=== PATIENT | female | born 1950 | race Caucasian/White ===

== ENCOUNTER 2018-06-05 10:26 | Emergency (ER) | payer MEDICARE, OTHER ==
[2018-06-05] MEDS ORDERED: Sodium Chloride 0.9% 10 ML Syringe FLUSH PRN (10:44)
--- NOTE | 2018-06-05 11:02 | EDM.PDOC ---
ED HPI GENERAL MEDICAL PROBLEM - General Time Seen by Provider: 06/05/18 10:40 Source of Information: Reports: Patient, Family History Limitations: Reports: No Limitations - History of Present Illness INITIAL COMMENTS - FREE TEXT/NARRATIVE: Pt. presents to ER with tachycardia and shortness of breath. Her heartrate was 180 at home. She states that she has had issues with unknown type tachycardia in the past, but it has never been officially diagnosed-it has never been seen on EKG, Holter, etc. Pt. states that she has been experiencing intermittent palpitations for a number of years, but the episodes have been more frequent with several episodes over the holidays. She states that she does not usually get dyspneic, but states that she is today. Although her heart rate has decreased, she continues to have a heart rate of greater than 110 this AM. She denies any chest pain. No increased peripheral edema. No nausea or vomiting. She had a negative stress echo in 2014. Pt. denies any recent illness, fever, chills, cough, sore throat, nausea, or other prodrome. Onset: Today Onset Date: 06/05/18 Duration: Constant Location: Reports: Chest, Generalized Associated Symptoms: Reports: Shortness of Breath. Denies: Chest Pain - Related Data Allergies Allergy/AdvReac Type Severity Reaction Status Date / Time No Known Allergies Allergy Verified 06/05/18 10:44 Home Meds: Home Meds Aspirin 81 mg PO DAILY 06/05/18 [History] Cholecalciferol (Vitamin D3) [Vitamin D3] 1,000 unit PO DAILY 06/05/18 [History] Hydroquinone [[place]] 1 gm TP ASDIRECTED 06/05/18 [History] Lysine 500 mg PO DAILY 06/05/18 [History] Pravastatin [Pravachol] 10 mg PO DAILY 06/05/18 [History] ED ROS GENERAL - Review of Systems Review Of Systems: See Below Constitutional: Reports: No Symptoms. Denies: Fever, Chills, Malaise, Weakness , Fatigue, Night Sweats, Diaphoresis, Weight Loss HEENT: Reports: No Symptoms Respiratory: Reports: Shortness of Breath. Denies: Cough Cardiovascular: Reports: Dyspnea on Exertion, Lightheadedness, Palpitations Endocrine: Reports: No Symptoms GI/Abdominal: Reports: No Symptoms. Denies: Abdominal Pain, Bloody Stool, Diarrhea, Nausea, Vomiting : Reports: No Symptoms. Denies: Dysuria, Flank Pain Musculoskeletal: Reports: No Symptoms Skin: Reports: No Symptoms. Denies: Cyanosis Neurological: Reports: No Symptoms Psychiatric: Reports: No Symptoms Hematologic/Lymphatic: Reports: No Symptoms Immunologic: Reports: No Symptoms ED EXAM, GENERAL - Physical Exam Exam: See Below Exam Limited By: No Limitations General Appearance: Alert, WD/WN, No Apparent Distress Eye Exam: Bilateral Eye: EOMI, PERRL Throat/Mouth: Normal Inspection, Normal Lips, Normal Teeth, Normal Gums, Normal Oropharynx, Normal Voice, No Airway Compromise Head: Atraumatic, Normocephalic Neck: Normal Inspection, Supple, Non-Tender, Full Range of Motion Respiratory/Chest: No Respiratory Distress, Lungs Clear, Normal Breath Sounds, No Accessory Muscle Use, Chest Non-Tender Cardiovascular: Normal Peripheral Pulses, Regular Rate, Rhythm, No Edema, No Gallop, No JVD, No Murmur, No Rub Peripheral Pulses: 4+: Radial (R) GI/Abdominal: Normal Bowel Sounds, Soft, Non-Tender, No Organomegaly, No Distention, No Mass (Female) Exam: Deferred Rectal (Female) Exam: Deferred Back Exam: Normal Inspection, Full Range of Motion Extremities: Normal Inspection, Normal Range of Motion, Non-Tender, No Pedal Edema, Normal Capillary Refill. No: Pedal Edema, Joint Swelling Neurological: Alert, Oriented, CN II-XII Intact, Normal Cognition, Normal Reflexes, No Motor/Sensory Deficits Psychiatric: Normal Affect, Normal Mood, Anxious Skin Exam: Warm, Dry, Intact, Pallor Lymphatic: No Adenopathy EKG INTERPRETATION Rhythm: NSR [place]: Normal P-Wave: Present QRS: Normal ST-T: Depressed QT: Normal EKG Interpretation Comments: Initial EKG showed sinus tach at [address] depression. Pt. was dyspneic at that time. Repeat EKG showed resolution of ST depression and a sinus rhythm at 87. Pt. was no longer dyspneic at that time. Course - Vital Signs Last Recorded V/S: Last Vital Signs Temp 37.4 C 06/05/18 10:35 Pulse 96 06/05/18 11:33 Resp 22 H 06/05/18 11:33 BP 150/100 H 06/05/18 11:33 Pulse Ox 98 06/05/18 11:33 - Orders/Labs/Meds Orders: Active Orders 24 hr Category Date Time Status Cardiac Monitoring [RC] CONTINUOUS Care 06/05/18 10:44 Active Dietary Supplements [RC] BIDMEALS Care 06/05/18 11:58 Active EKG Documentation Completion [RC] STAT Care 06/05/18 10:45 Active EKG Documentation Completion [RC] STAT Care 06/05/18 11:58 Active Sodium Chloride 0.9% [Saline Flush] Med 06/05/18 10:44 Active 10 ml FLUSH ASDIRECTED PRN Peripheral IV Insertion Adult [OM.PC] Routine Oth 06/05/18 10:45 Ordered Medication Orders Sodium Chloride (Saline Flush) 10 ml FLUSH ASDIRECTED PRN PRN Reason: Keep Vein Open Labs: Laboratory Tests 06/05/18 06/05/18 06/05/18 Range/Units 10:48 10:48 10:48 WBC 9.1 (4.0-10.0) x10^3/uL RBC 4.87 (4.00-5.50) x10^6/uL Hgb 14.4 (12.0-16.0) g/dL Hct 43.4 (33.0-47.0) % MCV 89.1 (78.0-93.0) fL MCH 29.6 (26.0-32.0) pg MCHC 33.2 (32.0-36.0) g/dL RDW Coeff of Beau 13.4 (10.0-15.0) % Plt Count 279 (130-400) x10^3/uL Neut % (Auto) 47.1 L (50.0-80.0) % Lymph % (Auto) 40.2 (25.0-50.0) % Day % (Auto) 9.5 (2.0-11.0) % Eos % (Auto) 2.9 (0.0-4.0) % Baso % (Auto) 0.3 (0.2-1.2) % PT 9.6 (9.6-11.4) SEC INR 0.9 L (2.0-3.5) D-Dimer, Quantitative 1.00 H (<=0.58) mg/LFEU Sodium 141 (136-145) mmol/L Potassium 4.4 (3.5-5.1) mmol/L Chloride 104 (98-107) mmol/L Carbon Dioxide 27 (21-32) mmol/L Anion Gap 14.4 (10-20) mmol/L BUN 12 (7-18) mg/dL Creatinine 0.9 (0.55-1.02) mg/dL Est Cr Clr Drug Dosing 45.14 mL/min Estimated GFR (MDRD) > 60 Glucose 114 H (74-106) mg/dL Calcium 10.4 H (8.5-10.1) mg/dL Corrected Calcium 10.56 H (8.5-10.1) mg/dL Phosphorus 2.4 L (2.6-4.7) mg/dL Magnesium 1.9 (1.8-2.4) mg/dL Total Bilirubin 0.6 (0.2-1.0) mg/dL AST 23 (15-37) U/L ALT 29 (14-59) U/L Alkaline Phosphatase 95 (46-116) U/L Troponin I < 0.017 (<=0.056) ng/mL C-Reactive Protein 0.4 (<=0.9) mg/dL NT-Pro-B Natriuret Pep 47 (<=125) pg/mL Total Protein 8.4 H (6.4-8.2) g/dL Albumin 3.8 (3.4-5.0) g/dL Globulin 4.6 Albumin/Globulin Ratio 0.83 TSH, Ultra Sensitive 2.251 (0.358-3.74) uIU/mL Urine Color (YELLOW) Urine Appearance (CLEAR) Urine pH (5.0-8.0) Ur Specific [place] Urine Protein (NEGATIVE) mg/dL Urine Glucose (UA) (NEGATIVE) mg/dL Urine Ketones (NEGATIVE) mg/dL Urine Occult Blood (NEGATIVE) Urine Nitrite (NEGATIVE) Urine Bilirubin (NEGATIVE) Urine Urobilinogen (0.2) EU/dL Ur Leukocyte Esterase (NEGATIVE) Urine RBC (NOT SEEN) /HPF Urine WBC (NOT SEEN) /HPF Ur Squamous Epith Cells (NEGATIVE) /HPF Urine Bacteria (NEGATIVE) /HPF Urine Mucus (NEGATIVE) /LPF 06/05/18 Range/Units 11:35 WBC (4.0-10.0) x10^3/uL RBC (4.00-5.50) x10^6/uL Hgb (12.0-16.0) g/dL Hct (33.0-47.0) % MCV (78.0-93.0) fL MCH (26.0-32.0) pg MCHC (32.0-36.0) g/dL RDW Coeff of Beau (10.0-15.0) % Plt Count (130-400) x10^3/uL Neut % (Auto) (50.0-80.0) % Lymph % (Auto) (25.0-50.0) % Day % (Auto) (2.0-11.0) % Eos % (Auto) (0.0-4.0) % Baso % (Auto) (0.2-1.2) % PT (9.6-11.4) SEC INR (2.0-3.5) D-Dimer, Quantitative (<=0.58) mg/LFEU Sodium (136-145) mmol/L Potassium (3.5-5.1) mmol/L Chloride (98-107) mmol/L Carbon Dioxide (21-32) mmol/L Anion Gap (10-20) mmol/L BUN (7-18) mg/dL Creatinine (0.55-1.02) mg/dL Est Cr Clr Drug Dosing mL/min Estimated GFR (MDRD) Glucose (74-106) mg/dL Calcium (8.5-10.1) mg/dL Corrected Calcium (8.5-10.1) mg/dL Phosphorus (2.6-4.7) mg/dL Magnesium (1.8-2.4) mg/dL Total Bilirubin (0.2-1.0) mg/dL AST (15-37) U/L ALT (14-59) U/L Alkaline Phosphatase (46-116) U/L Troponin I (<=0.056) ng/mL C-Reactive Protein (<=0.9) mg/dL NT-Pro-B Natriuret Pep (<=125) pg/mL Total Protein (6.4-8.2) g/dL Albumin (3.4-5.0) g/dL Globulin Albumin/Globulin Ratio TSH, Ultra Sensitive (0.358-3.74) uIU/mL Urine Color Light yellow (YELLOW) Urine Appearance Clear (CLEAR) Urine pH 7.5 (5.0-8.0) Ur Specific [place] 1.015 Urine Protein Negative (NEGATIVE) mg/dL Urine Glucose (UA) Negative (NEGATIVE) mg/dL Urine Ketones Negative (NEGATIVE) mg/dL Urine Occult Blood Trace-intact H (NEGATIVE) Urine Nitrite Negative (NEGATIVE) Urine Bilirubin Negative (NEGATIVE) Urine Urobilinogen 0.2 (0.2) EU/dL Ur Leukocyte Esterase Moderate H (NEGATIVE) Urine RBC 0-5 (NOT SEEN) /HPF Urine WBC 0-5 (NOT SEEN) /HPF Ur Squamous Epith Cells Rare (NEGATIVE) /HPF Urine Bacteria Not seen (NEGATIVE) /HPF Urine Mucus Not seen (NEGATIVE) /LPF Meds: Medications Generic Name Dose Route Start Last Admin Trade Name Freq PRN Reason Stop Dose Admin Sodium Chloride 10 ml 06/05/18 10:44 Saline Flush FLUSH ASDIRECTED PRN Keep Vein Open Discontinued Medications Generic Name Dose Route Start Last Admin Trade Name Freq PRN Reason Stop Dose Admin Ceftriaxone Sodium 1 gm 06/05/18 11:58 06/05/18 12:10 Rocephin IVPUSH 06/05/18 11:59 1 gm STAT ONE Administration Iopamidol 100 ml 06/05/18 11:57 06/05/18 12:09 Isovue-300 (61%) IVPUSH 06/05/18 11:58 60 ml ONETIME ONE Administration - Radiology Interpretation Free Text/Narrative:: Chest x-ray did not reveal any acute pathology CT angiogram of chest was obtained. No PE noted. She did have incidental evidence of an 8 mm noncalcified nodule in L upper lobe as well as an incompletely visualized lesion in the R hepatic lobe that will require further evaluation with MRI and/or CT in the future. - Re-Assessments/Exams Free Text/Narrative Re-Assessment/Exam: 06/05/18 13:09 Findings, EKG, and clinical course were reviewed with Dr. Freedman. He feels it is safe for the patient to have close outpatient followup. She was feeling normal at time of discharge. 06/05/18 13:13 Departure - Departure Time of Disposition: 13:01 Disposition: Home, Self-Care 01 Clinical Impression: Tachycardia, Palpitations, Pulmonary nodule - Discharge Information Instructions: Supraventricular Tachycardia, Adult, Urinary Tract Infection, Adult, Sulfamethoxazole; Trimethoprim, SMX-TMP tablets, Probiotics Referrals: Gerson Allred MD [Primary Care Provider] - Forms: ED Department Discharge Additional Instructions: Home to rest. I spoke with Dr. Freedman who suggested outpatient follow-up in the near future. If you redevelop this rapid heart rate, return to ER so we can see what rhythm you are in. Also return if you have shortness of breath, chest pain or lightheadedness. Bactrim DS 12 twice daily for 3 days. Drink plenty of fluids. - My Orders Last 24 Hours: My Active Orders 06/05/18 10:44 Cardiac Monitoring [RC] CONTINUOUS Sodium Chloride 0.9% [Saline Flush] 10 ml FLUSH ASDIRECTED PRN 06/05/18 10:45 EKG Documentation Completion [RC] STAT Peripheral IV Insertion Adult [OM.PC] Routine 06/05/18 11:58 Dietary Supplements [RC] BIDMEALS EKG Documentation Completion [RC] STAT - Assessment/Plan Last 24 Hours: My Active Orders 06/05/18 10:44 Cardiac Monitoring [RC] CONTINUOUS Sodium Chloride 0.9% [Saline Flush] 10 ml FLUSH ASDIRECTED PRN 06/05/18 10:45 EKG Documentation Completion [RC] STAT Peripheral IV Insertion Adult [OM.PC] Routine 06/05/18 11:58 Dietary Supplements [RC] BIDMEALS EKG Documentation Completion [RC] STAT Plan: Discussed findings with Dr. Allred. He will order a cardiolyte for this patient. Discussed performing a holter study, but due to the infrequency of the symptoms, any tachycardia likely would be missed during a 48 hour study. Pt. was urged to come to ER right away if the symptoms redevelop so an EKG can be obtained. Also discussed the other radiologic findings on the chest CT. Pt. was urged to return to ER if continued palpitations, chest pain, or shortness of breath. All questions were answered.
--- NOTE | 2018-06-05 11:23 | CR ---
[id number] RAD/RAD Chest PA or AP 1V EXAM: FRONTAL CHEST INDICATION: Dyspnea. COMPARISON: None. DISCUSSION: Mild hyperinflation suggests underlying chronic obstructive pulmonary disease. No acute infiltrates are identified. Normal heart size IMPRESSION: 1. No acute findings. Sorin Lezama MD 06/05/18 1122 Thank you for allowing us to participate in the care of your patient.
[2018-06-05 11:31] LABS: CHLORIDE,CL 104 mmol/L (98-107); SODIUM,NA 141 mmol/L (136-145)
[2018-06-05 11:34] LABS: ANION GAP 14.4 mmol/L (10-20)
[2018-06-05] MEDS: Iopamidol 612 MG/ML 100 ML Bottle IVPUSH ONE (12:09)
[2018-06-05] MEDS: cefTRIAXone 1 GM Vial IVPUSH ONE (12:10)
--- NOTE | 2018-06-05 12:40 | CT ---
[id number] CT/CTA Chest EXAM: CT ANGIOGRAM CHEST INDICATION: POSITIVE D-DIMER, SHORTNESS OF BREATH. COMPARISON: None. DISCUSSION: The pulmonary arteries are normal in appearance with no emboli identified. 8 mm noncalcified pulmonary nodule left upper lobe (series 4 image 23). No pleural or pericardial effusion. Normal heart size. No mediastinal, hilar or axillary lymphadenopathy. 2.7 cm hypodense lesion within the right hepatic lobe. Remaining visualized upper abdominal organs are unremarkable. IMPRESSION: 1. No evidence of acute pulmonary embolus. 2. 8 mm noncalcified pulmonary nodule left upper lobe. Follow-up CT in 6 months is recommended. 3. 2.7 cm hypodense lesion within the right hepatic lobe. This is incompletely evaluated on this study. Multi phase MRI versus CT is recommended for further evaluation of this lesion. Guancao Palumbo DO 06/05/18 [id number] Thank you for allowing us to participate in the care of your patient.
== END 2018-06-05 13:15 | disposition home or self-care (01) ==
LOC: VM.ED 10:26
DX: R00.0 Tachycardia, unspecified (principal); R00.2 Palpitations; R91.1 Solitary pulmonary nodule; Z79.82 Long term (current) use of aspirin; Z79.899 Other long term (current) drug therapy
CPT/HCPCS: 36415; 71045; 71275; 80053; 81001; 83735; 83880; 84100; 84443; 84484; 85025; 85379; 85610; 86140; 93005; 96374; 99285; J0696; Q9967